=== PATIENT | female | born 1950 | race Caucasian/White ===

== ENCOUNTER 2017-03-18 11:58 | Day surgery (SDC) | payer MEDICARE, BC ==
[~2017-03-18 11:58] MED LIST: RINGER'S SOLUTION,LACTATED 1,000 ML IV PRN
[2017-03-18] MEDS ORDERED: RINGER'S SOLUTION,LACTATED 1,000 ML IV ONE (12:45)
[2017-03-18] MEDS ORDERED: RINGER'S SOLUTION,LACTATED 1,000 ML IV PRN (14:24)
--- NOTE | 2017-03-18 14:30 | OR ---
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 She had a small bowel resection for MALT tumor and is brought for EGD to rule out gastric primary. Findings: Hiatal hernia, gastropathy, duodenitis (pathology pending) Narrative of procedure: The patient was identified preoperatively, and prior to the administration of anesthetic a multidisciplinary timeout was observed With the patient in the recumbent position, a bite-block was placed, intravenous sedation administered, and the patient's eyes covered with a towel. The flexible fiberoptic gastroscope was advanced into the posterior pharynx which appeared normal. There were a large amount of thick secretions which were suctioned. The supraglottic larynx appeared normal. The cords appeared normal, moved well, and opposed in the midline. The scope was advanced under direct vision into the proximal esophagus which appeared normal. The esophagus appeared freely distensible with normal mucosa. The esophageal mucosa appeared normal down to the gastroesophageal junction which was sharp and noninflamed. The GE junction appeared normally distensible. There was a small axial hiatal hernia. The scope was advanced into the stomach proper which was insufflated with air. There was mild hernandez gastric erythema with some mucosal edema but no emmanuel ulcers or neoplastic lesions were appreciated including a retroflex view of the gastric fundus. The scope was redirected toward the pylorus. The pylorus appeared patent. The scope was advanced into the duodenal bulb which appeared erythematous with reflux. The scope was advanced further to the horizontal portion of the duodenum which appeared normal, specifically the villous architecture appeared well preserved and clear bile was present. The scope was slowly withdrawn through the duodenal bulb with confirmation that no active ulcer was present. The erythematous area of duodenal mucosa was biopsied. The site appeared hemostatic. The scope was withdrawn into the stomach and a disability representative biopsy of gastric mucosa obtained for CLOtest and multiple biopsies were obtained for pathology. The biopsy sites were seen to be hemostatic. The insufflated air was removed, the scope withdrawn from the patient, and the procedure terminated. The patient tolerated the anesthetic and procedure well without complication and was transferred back to the ambulatory surgery area awake and in stable condition. The patient remained stable throughout a period of postoperative observation, was able to tolerate po intake, and was up without assistance. I shared the operative findings with her and her , and she was given copies of the photographs which appear in the medical record. She was discharged home with instructions not to engage in hazardous activity today, but may return to normal activity tomorrow and advance diet as tolerated. She is to continue medications as listed in the history and physical exam. I made arrangements to contact the patient with the biopsy reports and will make further recommendation based upon that result. Reviewed and electronically signed
[2017-03-18 14:31] VITALS: BP 154/74
== END 2017-03-18 11:59 | disposition home or self-care (01) ==
LOC: AMB 11:58
PROVIDERS: ATTEND Surgery
PROC: 0DB68ZX Excision of Stomach, Via Natural or Artificial Opening Endoscopic, Diagnostic (ICD-10-PCS; 2017-03-18)
PROC: 0DB98ZX Excision of Duodenum, Via Natural or Artificial Opening Endoscopic, Diagnostic (ICD-10-PCS; principal; 2017-03-18 13:30)
DX: C88.4 Extranodal marginal zone B-cell lymphoma of mucosa-associated lymphoid tissue [MALT-lymphoma] (principal); K29.80 Duodenitis without bleeding; K44.9 Diaphragmatic hernia without obstruction or gangrene; I10 Essential (primary) hypertension; E78.5 Hyperlipidemia, unspecified; J45.30 Mild persistent asthma, uncomplicated; Z87.891 Personal history of nicotine dependence; Z68.32 Body mass index [BMI] 32.0-32.9, adult